=== PATIENT | male | born 1965 | race African-American/Black ===

== ENCOUNTER 2025-03-18 15:04 | Inpatient (IN) | payer MEDICAID, OTHER ==
[~2025-03-18] VITALS: Ht 188 cm; Wt 63.0 kg
[2025-03-18 16:35] LABS: HEMATOCRIT. 34.3 % (42.0-52.0); HEMOGLOBIN. 11.3 g/dL (14.0-18.0); MEAN PLATELET VOLUME 9.4 fl (7.4-10.4); PLATELET 250 x1000/uL (130-400); RED BLOOD CELL COUNT 3.83 mill/uL (4.7-6.1); RED CELL DISTRIBUTION WIDTH 16.4 % (11.6-14.6)
[2025-03-18 16:48] LABS: UREA NITROGEN BLOOD 37 mg/dL (9-23)
[2025-03-18 16:52] LABS: CREATININE 7.1 mg/dL (0.6-1.3); TROPONIN I HIGH SENSITIVITY 63 ng/L (3.0-53)
[2025-03-18 17:08] LABS: LYMPHOCYTES % MANUAL 7.0 % (20.0-50.0); MONOCYTES % MANUAL 11.0 % (2.0-8.0); NEUTROPHILS % MANUAL 82.0 % (45.0-75.0); PLATELET ESTIMATE NORMAL
[2025-03-18] MEDS: SODIUM CHLORIDE 0.9% 250 ML IV ONE (20:30)
[2025-03-18 21:50] VITALS: BP 110/70; PULSE 68; RESP 16; TEMP 36.7; O2SAT 97
[2025-03-18 23:58] VITALS: BP 110/70; PULSE 68; RESP 18; TEMP 36.7516
[2025-03-19] VITALS (7 sets, daily range): BP systolic 97–129; BP diastolic 68–77; PULSE 69–86; RESP 16–20; TEMP 36.3–36.9; O2SAT 95–100
[2025-03-19] MEDS: SEVELAMER CARBONATE 800 MG TABLET PO SCH (07:30)
[2025-03-19] MEDS: APIXABAN 5 MG TABLET PO SCH (08:48)
[2025-03-19] MEDS: PREDNISONE 5MG TABLET PO SCH (08:48)
[2025-03-19] MEDS: HYDROXYCHLOROQUINE SULFATE 200MG TABLET PO SCH (08:48)
[2025-03-19] MEDS: FOLIC ACID/VITAMIN B COMP W-C TABLET PO SCH (08:48)
[2025-03-19] MEDS: ALLOPURINOL 100 MG TABLET PO SCH (08:49)
[2025-03-19 11:53] LABS: BASOPHILS % 0.4 % (0.0-2.0); EOSINOPHILS % 0.7 % (0.0-5.0); HEMATOCRIT. 33.6 % (42.0-52.0); HEMOGLOBIN. 10.9 g/dL (14.0-18.0); LYMPHOCYTES % 8.3 % (20.0-50.0); MEAN PLATELET VOLUME 9.3 fl (7.4-10.4); MONOCYTES % 11.3 % (2.0-8.0); NEUTROPHILS % 79.3 % (40.0-76.0); PLATELET 280 x1000/uL (130-400); RED BLOOD CELL COUNT 3.71 mill/uL (4.7-6.1); RED CELL DISTRIBUTION WIDTH 16.6 % (11.6-14.6)
[2025-03-19 12:37] LABS: UREA NITROGEN BLOOD 45.0 mg/dL (9-23)
[2025-03-19 12:46] LABS: CREATININE 8.6 mg/dL (0.6-1.3)
[2025-03-19 13:45] LABS: HEPATITIS A AB IGM NEGATIVE (Negative); HEPATITIS B CORE AB IGM NEGATIVE (Negative)
[2025-03-19 13:46] LABS: HEPATITIS C AB NON REACTIVE (Neg) (Negative)
[2025-03-20] VITALS (9 sets, daily range): BP systolic 104–125; BP diastolic 60–79; PULSE 75–100; RESP 16–20; TEMP 36.50292–36.9; O2SAT 95–99
[2025-03-20] MEDS: ACETAMINOPHEN 325MG TABLET PO PRN (05:14)
[2025-03-21] VITALS (15 sets, daily range): BP systolic 107–152; BP diastolic 60–99; PULSE 53–98; RESP 16–18; TEMP 36.05844–36.8; O2SAT 92–99
[2025-03-21 12:53] LABS: BASOPHILS % 0.6 % (0.0-2.0); EOSINOPHILS % 0.6 % (0.0-5.0); HEMATOCRIT. 34.0 % (42.0-52.0); HEMOGLOBIN. 11.3 g/dL (14.0-18.0); LYMPHOCYTES % 7.5 % (20.0-50.0); MEAN PLATELET VOLUME 9.1 fl (7.4-10.4); MONOCYTES % 13.2 % (2.0-8.0); NEUTROPHILS % 78.1 % (40.0-76.0); PLATELET 278 x1000/uL (130-400); RED BLOOD CELL COUNT 3.82 mill/uL (4.7-6.1); RED CELL DISTRIBUTION WIDTH 16.5 % (11.6-14.6)
[2025-03-21 13:27] LABS: UREA NITROGEN BLOOD 42.0 mg/dL (9-23)
[2025-03-21 13:40] LABS: CREATININE 8.0 mg/dL (0.6-1.3)
[2025-03-22] VITALS: BP 119/91; PULSE 104; RESP 17; TEMP 37.7; O2SAT 99
[2025-03-22 04:00] VITALS: BP 111/81; PULSE 107; RESP 16; TEMP 37.2; O2SAT 97
[2025-03-22 08:00] VITALS: BP 107/60; PULSE 116; RESP 18; TEMP 36.8; O2SAT 97
[2025-03-22] MEDS: DIATR MEGLU/DIATRIZOATE SOLN 30ML ONE (08:04)
[2025-03-22 12:00] VITALS: BP 129/71; PULSE 93; RESP 18; TEMP 36.8; O2SAT 98
[2025-03-22] MEDS ORDERED: CEFTRIAXONE 1GM/50ML 50 ML IV SCH (12:00)
[2025-03-22 16:00] VITALS: BP 110/80; PULSE 71; RESP 17; TEMP 36.3; O2SAT 95
[2025-03-22 20:00] VITALS: BP 110/82; PULSE 102; RESP 18; TEMP 37.3; O2SAT 98
[2025-03-22] MEDS: CEFTRIAXONE 1GM/50ML 50 ML IV SCH (22:00)
[2025-03-23] VITALS (8 sets, daily range): BP systolic 102–125; BP diastolic 67–91; PULSE 96–110; RESP 17–20; TEMP 36.3–37.2; O2SAT 98–100
[2025-03-23 05:52] LABS: UREA NITROGEN BLOOD 32.0 mg/dL (9-23)
[2025-03-23 05:59] LABS: HEMATOCRIT. 34.8 % (42.0-52.0); HEMOGLOBIN. 11.5 g/dL (14.0-18.0); MEAN PLATELET VOLUME 9.1 fl (7.4-10.4); PLATELET 286 x1000/uL (130-400); RED BLOOD CELL COUNT 3.87 mill/uL (4.7-6.1); RED CELL DISTRIBUTION WIDTH 16.8 % (11.6-14.6)
[2025-03-23 06:07] LABS: CREATININE 7.2 mg/dL (0.6-1.3)
[2025-03-23 09:35] LABS: BAND% 3.0 % (1.0-6.0); EOSINOPHILS % MANUAL 1.0 % (0.0-5.0); LYMPHOCYTES % MANUAL 7.0 % (20.0-50.0); MONOCYTES % MANUAL 10.0 % (2.0-8.0); NEUTROPHILS % MANUAL 79.0 % (45.0-75.0)
[2025-03-23 09:36] LABS: PLATELET ESTIMATE NORMAL
[2025-03-23] MEDS: CEFTRIAXONE 1GM/50ML 50 ML IV SCH (21:47)
[2025-03-24] VITALS (13 sets, daily range): BP systolic 95–143; BP diastolic 68–97; PULSE 80–114; RESP 17–20; TEMP 36.3–37; O2SAT 96–100
[2025-03-24] MEDS: ONDANSETRON HCL 4MG/2ML INJ IV PRN (10:24)
[2025-03-24 13:36] LABS: UREA NITROGEN BLOOD 26 mg/dL (9-23)
[2025-03-24 13:38] LABS: ASPARTATE AMINOTRANSFERASE 21 IU/L (<34); BILIRUBIN TOTAL 0.8 mg/dL (0.1-1.0); PROTEIN TOTAL 6.4 g/dL (6.0-8.3)
[2025-03-24 14:20] LABS: CREATININE 6.0 mg/dL (0.6-1.3)
[2025-03-25] VITALS (14 sets, daily range): BP systolic 99–131; BP diastolic 65–90; PULSE 77–108; RESP 16–18; TEMP 36.3918–36.9; O2SAT 95–100
== END 2025-03-25 17:36 | disposition home or self-care (01) | DRG 314 ==
LOC: ER 15:04 → EDBEDREQTM 21:05 → EDBEDREQ 21:05 → ENRESERV 21:09 → 5WST 21:31 → 8EST 03-23 13:53
PROVIDERS: ADMIT Internal Medicine; ATTEND Internal Medicine
PROC: 5A1D70Z Performance of Urinary Filtration, Intermittent, Less than 6 Hours Per Day (ICD-10-PCS; principal; 2025-03-19)
PROC: 5A1D70Z Performance of Urinary Filtration, Intermittent, Less than 6 Hours Per Day (ICD-10-PCS; 2025-03-21)
PROC: 5A1D70Z Performance of Urinary Filtration, Intermittent, Less than 6 Hours Per Day (ICD-10-PCS; 2025-03-23)
PROC: 5A1D70Z Performance of Urinary Filtration, Intermittent, Less than 6 Hours Per Day (ICD-10-PCS; 2025-03-25)
DX: I95.9 Hypotension, unspecified (principal); N18.6 End stage renal disease; I12.0 Hypertensive chronic kidney disease with stage 5 chronic kidney disease or end stage renal disease; Z68.1 Body mass index [BMI] 19.9 or less, adult; Z99.2 Dependence on renal dialysis; R63.4 Abnormal weight loss; D64.9 Anemia, unspecified; Z93.3 Colostomy status
CPT/HCPCS: 36415; 71045; 80048; 80053; 83880; 84145; 84484; 85025; 86705; 86709; 87340; 90935; 93306; 97163; 99285; J0696; J2405; J7050; J7512; Q9963